=== PATIENT | male | born 1970 | race Caucasian/White ===

== ENCOUNTER 2016-07-11 16:59 | Emergency (ER) | payer OTHER ==
[~2016-07-11] VITALS: Ht 188 cm; Wt 102.3 kg
[2016-07-11 17:03] VITALS: BP 136/97; PULSE 105; RESP 16; O2SAT 98
--- NOTE | 2016-07-11 18:22 | ED.REPORT ---
HPI-Head Prob / Injury Date of Service July 11, 2016 ED Provider: Dr. Bola Cole The patient is an otherwise healthy 45 year old male who presents to the ED due to concern for a possible concussion received yesterday at 1100. The pt was walking, slipped, fell and hit the right frontal lobe on a log. He did not lose consciousness. The pt describes pressure and throbbing, constant, head pain as well as mild neck pain. He has a small abrasion and laceration to the right frontal region. He confirms dizziness when he stands or moves quickly, and even a slight cough exacerbates his headache. He denies bleeding from his ears, nausea, confusion, memory loss, extremity pain, numbness,or weakness. Nursing Notes Stated Complaint: HEAD INJURY Chief Complaint: Head, Face, Neck Trauma Nursing Notes Reviewed: Yes ([employer] not reconciled) Allergies: Coded Allergies: Sulfa (Sulfonamide Antibiotics) (Verified Allergy, Unknown, 08/28/14) Scheduled PRN Hydrocodone-Acetaminophen 5-325 mg (Hydrocodone-Acetaminophen 5-325 mg) 1 Each Tablet 1-2 TABLET PO Q6H PRN PRN For Pain General Time Seen by Provider: 18:40 Chief Complaint Other (possible concussion) Hx Obtained From: Patient Arrived By: Walk-in Onset Occurred: Yesterday (yesterday morning) Symptom Duration: Since onset Progression Since Onset: Constant Caused by: Fall from (ground) Location: : Temporal region R Quality: Painful Severity: Current: Mild Immunizations: Tetanus up to date Recent Healthcare: No recent doctor visit, No recent hospitalization Similar Sx Previous: No Past Medical History Past Medical History arthritis to right hand Past Surgical History rotator cuff surgery Smoking History Unknown if Ever Smoker Social History Other Social History: Local resident Ambulatory Status Independent Review of Systems Ears / Nose / Throat: Denies: Nose bleeding GI: Denies: Nausea Musculoskeletal: Reports: Neck pain, Denies: Extremity pain Skin: Reports Bruising, Reports Swelling (hematoma and scalp laceration) Neurologic: Reports: Dizziness, Headache, Lightheaded, Denies: Change LOC, Confusion, Numbness, Weakness Complete sys rev & neg: except as marked. Physical Exam Initial Vital Signs Vital Signs (First) Date Time Temp Pulse Resp B/P Pulse Ox O2 Delivery O2 Flow Rate FiO2 07/11/16 17:03 36.7 105 16 136/97 98 Room Air Initial VS: Reviewed, Vital signs abnormal (HR 105) Respiratory: Breath sounds normal, Clear to auscultation, No respiratory distress Cardiovascular: Regular rate & rhythm, Heart sounds normal, Intact distal pulses Abdomen / GI: Soft, Non-tender, No guarding, No rebound, No distention Extremities: Vascular intact, Neuro intact, No swelling, No tenderness Skin: Warm, Dry Psychiatric: Mood/affect normal General/Constitutional: Awake, Alert, Cooperative, Not toxic appearing Head / Eyes: Normocephalic, PERRL Trauma - General: Positive: Laceration hematoma and scalp laceration w/ dried blood ENT: Atraumatic, Airway patent, Mucous membranes moist, Pharynx NL Neck: No midline vertebral tend right sided lateral neck pain Neurologic: Oriented X3, Speech NL, No motor deficits Interpretation & Diagnostics CT Head Interpretation IMPRESSION: No acute intracranial abnormalities. Dictated by: Shane Vasquez M.D. on 07/11/2016 at 18:52 Approved by: Shane Vasquez M.D. on 07/11/2016 at 18:52 Study: Head CT no contrast Interpretation / Wet Read by: Interpret - Radiologist Procedures Laceration Management Laceration Management: .5 m scalp abrasion to left frontal lobe Time: 19:08 Procedure Performed by: ED physician Consent / Setup / Site Prep: Informed consent provided, Consent from patient , Hand hygiene observed, Stand sterile technique Local Anesthesia: Lidocaine w epi 1% Foreign Body Explore / Removal: Explored for foreign body Repair Skin: Dermabond Post-Procedure / Complications: Antibiotic oint applied, Dressing applied, No complications, Condition improved, Tolerated procedure well, Patient stable Re-Eval/Medical Decision Med Decision/Clinical Course This is a 45-year-old male presents concerned with a head injury after tripping falling and hitting his head against a log hard yesterday. Since then he has had some increasing headache, and some dizziness. He has had no other complaints, no loss of consciousness, no focal deficits, it is suffered a laceration on the side of his head. He is up-to-date on tetanus. He is not on anticoagulants. Found patient awake, alert, and appropriate without signs of altered mentation or focal deficit. He has a deep abrasion subtle laceration that did edge approximation without evidence that he needs suture or staple repair with a small hematoma on the right parietal side of the head. There is dried blood as this injury occurred greater than 24 hours ago, and the wound was anesthetized, cleaned and inspected-but again I am not finding evidence of a benefit from repair. Respiratory exam is normal. There is no evidence of cervical spine injury. Nurse's obtain CT imaging of the brain which was negative. Patient is reassured. Reactive precautions reviewed. Patient's discharged in stable condition. Source of Hx: Old records Re-Evaluation/Progress : Time of Eval: 19:07 Patient Status: Condition improved, Pain improved Re-Evaluation/Progress Note: Laceration management performed. Pt tolerated procedure well. X-ray does not show any fracture. Plan for discharge. F/U and RTER warnings given. Pt understands and agrees with plan. All questions addressed. Differential Diagnosis: Positive: Abrasion, Blunt head trauma, Scalp laceration , Negative: Basilar skull fracture, Cervical spine injury, Closed head injury, Epidural hematoma, Epistaxis, Facial bone fracture, Gun shot wound head, Intracranial hemorrhage, Penetrating head injury, Seizure, Skull fracture, Subdural hematoma, Syncope Counseled Regarding: Diagnosis, Lab results, Need for follow-up, When/why to return to ED Discharge & Departure Primary Impression: Blunt head trauma Encounter type: initial encounter Qualified Code: S09.8XXA - Other specified injuries of head, initial encounter Additional Impression: Scalp laceration Encounter type: initial encounter Qualified Code: S01.01XA - Laceration without foreign body of scalp, initial encounter Disposition: Home All VS Reviewed: Yes Condition: Stable Patient Instructions: Concussion (ED) Additional Instructions: 1. The CT scan was normal. 2. It is OK to sleep. 3. Symptoms should improve with time. 4. Activities as tolerated. 5. You do have a scalp laceration, but it does not require stapling or sutures and will heal with time. It was cleaned today. It is OK to shower. Return if any concern for infection: redness, swelling, fever, worsening pain, etc... 6. Take ibuprofen 400-800mg three times a day for soreness/pain if needed. 7. If needed for more severe pain take (vicodin) hydrocodone/APAP 5/325 1-2 tabs up to every 6 hours. Note: This medication contains narcotic and causes drowsiness. Use sparingly. Referrals: [facility] (PCP) [facility] Scribe Attestation Portion of this note were transcribed by Yuki Vega. I, Dr.Matthew Cole, personally performed the history, physical exam, and medical decision-making: I reviewed and confirmed the accuracy for the information in the transcribed note. Signed by: leona Laura, 07/11/16 2000 copies to: N[facility]; [facility] Bola Cole MD July 11, 2016 18:22 Yuki Vega July 11, 2016 18:40
--- NOTE | 2016-07-11 18:54 | DRSVH ---
PROCEDURE: CT BRAIN WITHOUT CONTRAST ([id number]) INDICATIONS: 45 year-old male with head injury and increasing headaches. TECHNIQUE: Noncontrast 4.5 mm thick angled axial sections acquired from the foramen magnum to the vertex, with c oronal reformats. COMPARISON: None. FINDINGS: Image quality: Excellent. CSF spaces: Basal cisterns are patent. No extra-axial fluid collections. Ventricles are normal in size and shape. Brain: No midline shift. No intracranial masses or hemorrhage. Santacruz-white matter interface is norm al. Skull and face: Calvarium and visualized facial bones are intact, without suspicious lesions. Sinuses: Visualized sinuses and mastoids are clear. IMPRESSION: No acute intracranial abnormalities. Dictated by: Shane Vasquez M.D. on 07/11/2016 at 18:52 Approved by: Shane Vasquez M.D. on 07/11/2016 at 18:52
[2016-07-11] MEDS ORDERED: HYDR-4003 PO (19:16)
== END 2016-07-11 19:23 | disposition home or self-care (01) ==
LOC: SED 16:59
DX: S01.01XA Laceration without foreign body of scalp, initial encounter (principal); S09.8XXA Other specified injuries of head, initial encounter; W01.198A Fall on same level from slipping, tripping and stumbling with subsequent striking against other object, initial encounter; Y93.01 Activity, walking, marching and hiking; Y92.9 Unspecified place or not applicable; Y99.8 Other external cause status; Z88.2 Allergy status to sulfonamides

== ENCOUNTER 2016-08-18 12:49 | Emergency (ER) | payer OTHER ==
[~2016-08-18] VITALS: Ht 188 cm; Wt 104.5 kg
[~2016-08-18 12:49] MED LIST: HYDR-4003 PO
[2016-08-18 12:50] VITALS: BP 147/97; PULSE 98; RESP 16; O2SAT 99
--- NOTE | 2016-08-18 13:13 | ED.REPORT ---
HPI-Rash / Abscess Date of Service Aug 18, 2016 ED Provider: Eric Jerome MD Pt is a healthy 45 year old male who presents to the ED with concerns for a developing abscess under his right armpit. He reports that he has had this in the past. He reports no discharge or fevers. He has no other complaints. Nursing Notes Stated Complaint: ABSCESS UNDER RIGHT ARMPIT Chief Complaint: Skin Rash/Abscess Nursing Notes Reviewed: Yes Allergies: Coded Allergies: Sulfa (Sulfonamide Antibiotics) (Verified Allergy, Unknown, 08/18/16) Scheduled Clindamycin (Clindamycin) 300 Mg Capsule 300 MG PO QID Scheduled PRN Hydrocodone-Acetaminophen 5-325 mg (Hydrocodone-Acetaminophen 5-325 mg) 1 Each Tablet 1 TABLET PO Q4H PRN PRN For Pain Ibuprofen (Ibuprofen) 800 Mg Tablet 800 MG PO TID PRN PRN For Pain General Time Seen by MD: 12:55 Chief Complaint Abscess Hx Obtained From: Patient Arrived By: Walk-in Onset Occurred: 2 days ago Symptom Duration: Since onset Location: : Axilla Quality: Painful Severity: Current: Mild Severity: Maximum: Moderate Similar Sx Previous: Yes Past Medical History Past Medical History arthritis to right hand Past Surgical History rotator cuff surgery Smoking History Unknown if Ever Smoker Social History Other Social History: Local resident Ambulatory Status Independent Review of Systems Constitutional: Denies: Chills, Fever, Malaise, Weakness - generalized Respiratory: Denies: Non-productive cough, Shortness of breath, Wheezing Cardiovascular: Denies: Chest pain, Syncope GI: Denies: Abdominal pain, Constipation, Diarrhea, Nausea, Vomiting Musculoskeletal: Denies: Back pain, Extremity pain, Neck pain Skin: Reports Rash, Denies Swelling Complete sys rev & neg: except as marked. Physical Exam Initial Vital Signs Vital Signs (First) Date Time Temp Pulse Resp B/P Pulse Ox O2 Delivery O2 Flow Rate FiO2 08/18/16 12:50 36 98 16 147/97 99 Room Air Initial VS: Reviewed Head / Eyes: Atraumatic, Normocephalic, PERRL ENT: Mucous membranes moist, Conjunctiva normal, No scleral icterus Neck: Supple, Non-tender, Full range of motion Respiratory: Breath sounds normal, Clear to auscultation, No respiratory distress Cardiovascular: Regular rate & rhythm, Heart sounds normal, Intact distal pulses Abdomen / GI: Soft, Non-tender, No guarding, No rebound, No distention Neurologic: Alert General/Constitutional: Awake, Alert, No acute distress, Well appearing, Well developed Skin: Warm, Dry Abscess Notes: 1x1cm area of erythematous mass on right axilla No fluctuance or discharge Re-Eval/Medical Decision Med Decision/Clinical Course 45 -year-old male presenting complaining of abscess on right armpit. On exam with small 1 x 1 cm area erythematous mass no fluctuance no drainage. Discussed with patient the possibility of performing incision and drainage and he prefers antibiotic management at this time. Will place on clindamycin and given sulfa allergy. Return precautions given if any new or worsening pain, swelling, discharge, fevers, right upper extremity neurological deficits, any other neurologic symptoms. Source of Hx: Old records Re-Evaluation/Progress : Time of Eval: 13:33 Re-Evaluation/Progress Note: Pt is rechecked and informed of his diagnosis and the plan to discharge him at this time. He understands and agrees, all questions are addressed. Counseled Regarding: Diagnosis, Need for follow-up, When/why to return to ED Discharge & Departure Impression: Primary Impression: Abscess Disposition: Home Discharge Condition All VS Reviewed: Yes Condition: Stable Patient Instructions: Abscess (ED) Additional Instructions: You elected for no incision and drainage of your abscess today, with a trial with an antibiotic. Take the antibiotic as prescribed. Take ibuprofen to alleviate your pain. Use the narcotic pain medication sparingly. This medication may cause drowsiness, do not drive or drink alcohol while on this medication. Follow up with your primary care provider later this week for a re- check. Return to the emergency department with any fevers, numbness, weakness or tingling in your upper extremities or any other worsening or concerning symptoms. Referrals: [facility] Scribneeraj Attestation Portions of this note were transcribed by Dunia Stock. I, Dr. Jerome personally performed the history, physical exam and medical decision-making; I reviewed and confirmed the accuracy of the information in the transcribed note. Signed by: Alta Mcfarland, 08/18/2016 13:30 copies to: [facility] Eric Jerome MD Aug 18, 2016 13:13 NAZANIN STOCK Aug 18, 2016 13:21
[2016-08-18] MEDS ORDERED: IBUP800T28 PO (13:15)
[2016-08-18] MEDS ORDERED: HYDR-4003 PO (13:15)
[2016-08-18] MEDS ORDERED: CLIN-78 PO (13:15)
[2016-08-18 13:28] VITALS: BP 129/92; PULSE 90; RESP 16; O2SAT 93
== END 2016-08-18 13:31 | disposition home or self-care (01) ==
LOC: SED 12:49
DX: L02.411 Cutaneous abscess of right axilla (principal); Z88.2 Allergy status to sulfonamides

== ENCOUNTER 2016-10-26 23:11 | Emergency (ER) | payer OTHER ==
[~2016-10-26] VITALS: Ht 188 cm; Wt 102.3 kg
[~2016-10-26 23:11] MED LIST changes: +CLIN-78 PO; +IBUP800T28 PO
[2016-10-26 23:17] VITALS: BP 153/92; PULSE 78; RESP 16; O2SAT 97
--- NOTE | 2016-10-27 00:07 | ED.REPORT ---
HPI-Rash / Abscess Date of Service Oct 27, 2016 ED Provider: Iraj Zurita Pt is a 45 y/o male who presents to the ED c/o cellulitis in his R axilla onset two days ago. He states he was previously treated with antibiotics for similar symptoms one month ago. Additional symptoms include swelling in his R axilla. He denies fever, chills, numbness/tingling, focal weakness, SOB, chest pain, nausea, vomiting, or diarrhea. Nursing Notes Stated Complaint: INFECTION, RT ARMPIT Chief Complaint: Skin Rash/Abscess Nursing Notes Reviewed: Yes Allergies: Coded Allergies: Sulfa (Sulfonamide Antibiotics) (Verified Allergy, Unknown, 10/26/16) Scheduled Clindamycin (Clindamycin) 300 Mg Capsule 300 MG PO QID Scheduled PRN Hydrocodone-Acetaminophen 5-325 mg (Hydrocodone-Acetaminophen 5-325 mg) 1 Each Tablet 1 TABLET PO Q4H PRN PRN For Pain Ibuprofen (Ibuprofen) 800 Mg Tablet 800 MG PO TID PRN PRN For Pain General Time Seen by MD: 00:07 Chief Complaint Other (Cellulitis on R axilla) Hx Obtained From: Patient Arrived By: Walk-in Onset Occurred: 2 days ago Location: : Axilla Severity: Current: Mild Severity: Maximum: Moderate Recent Healthcare: No recent doctor visit, Recent hospitalization Similar Sx Previous: Yes Past Medical History Past Medical History arthritis to right hand Past Surgical History rotator cuff surgery Smoking History Unknown if Ever Smoker Social History Alcohol Use: "Social" Drug Use: THC Other Social History: Local resident Ambulatory Status Independent Review of Systems cellulitis in R axilla Constitutional: Denies: Chills, Fever Respiratory: Denies: Shortness of breath Cardiovascular: Denies: Chest pain GI: Denies: Diarrhea, Nausea, Vomiting Musculoskeletal: Reports: Extremity swelling (in R axilla) Complete sys rev & neg: except as marked. Neurologic: Denies: Focal weakness, Numbness Physical Exam Initial Vital Signs Vital Signs (First) Date Time Temp Pulse Resp B/P Pulse Ox O2 Delivery O2 Flow Rate FiO2 10/26/16 23:17 36.8 78 16 153/92 97 Initial VS: Reviewed Head / Eyes: Atraumatic, Normocephalic Neck: Supple, Full range of motion Extremities: Vascular intact, Neuro intact, No swelling, No tenderness Neurologic: Alert, Oriented, Nonfocal Psychiatric: Mood/affect normal, Behavior normal, Normal thought content General/Constitutional: Awake, Alert, No acute distress Skin: Warm, Dry Cellulitis in R axilla Respiratory / Chest: Atraumatic, Breath sounds NL, Breath sounds = bilat, No respiratory distress Cardiovascular: Heart rate NL, Regular rhythm, Heart sounds NL Re-Eval/Medical Decision Med Decision/Clinical Course No drainable abscess collection. He has been treated successfully with clindamycin. We will placement short course of clindamycin and have outpatient follow-up. Routine opiate warnings given. He had at least moderate to severe pain. Take home pack of [place] was provided. Source of Hx: Old records Re-Evaluation/Progress : Time of Eval: 00:07 Re-Evaluation/Progress Note: Discussed plan for discharge. Patient understands and agrees with plan. F/U instructions and RTER warnings given. All questions addressed at this time. Counseled Regarding: Diagnosis, Lab results, Need for follow-up, When/why to return to ED Discharge & Departure Impression: Primary Impression: Cellulitis Site of cellulitis: other site Qualified Code: L03.818 - Cellulitis of other sites Disposition: Home Discharge Condition All VS Reviewed: Yes Condition: Stable Additional Instructions: Take the Clindamycin four times a day for five days. Stop taking Clindamycin if you experience any diarrhea. Take 1-2 [place] every 6 hours for pain. [address] not drive , drink alcohol, or take acetaminophen while taking [place]. Follow up with your primary care doctor in 48-72 hours for a recheck. If you develop any fluctuance , please return to your primary care doctor or emergency room for it to be drained. Please return to the emergency department if you experience any progressively worsening symptoms, or any other concerns. Referrals: [facility] (PCP) [facility] Scribe Attestation Portions of this note were transcribed by Gia Dela Cruz. I, Dr. Zurita, personally performed the history, physical exam and medical decision-making; I reviewed and confirmed the accuracy of the information in the transcribed note. copies to: [facility] Iraj Zurita DO Oct 27, 2016 00:07 Gia Dela Cruz Oct 27, 2016 00:19
[2016-10-27] MEDS ORDERED: _HYDROcodone/APAP 5-325 mg Tablet PO PRN (00:20)
[2016-10-27 00:42] VITALS: BP 153/92; PULSE 78; RESP 16; O2SAT 97
== END 2016-10-27 00:41 | disposition home or self-care (01) ==
LOC: SED 23:11
DX: L03.111 Cellulitis of right axilla (principal); L03.818 Cellulitis of other sites; Z88.2 Allergy status to sulfonamides

== ENCOUNTER 2016-11-03 19:34 | Emergency (ER) | payer OTHER ==
[~2016-11-03] VITALS: Ht 188 cm; Wt 102.3 kg
[2016-11-03 19:44] VITALS: BP 165/82; PULSE 86; RESP 16; O2SAT 99
--- NOTE | 2016-11-03 19:53 | ED.REPORT ---
HPI-Rash / Abscess Date of Service Nov 03, 2016 ED Provider: History of Present Illness: 45-year-old male here for abscess in his left axilla. He has had a similar lesion in his right axilla in August. He took clindamycin and went away. This lesion he presents with today or to 3 days ago. It is painful. No drainage. No fever nausea or vomiting. He is otherwise healthy. Nursing Notes Stated Complaint: LEFT SPRAINED KNEE/LEFT ARMPIT BOIL Chief Complaint: Skin Rash/Abscess Nursing Notes Reviewed: Yes Allergies: Coded Allergies: Sulfa (Sulfonamide Antibiotics) (Verified Allergy, Unknown, 11/03/16) Scheduled Clindamycin (Clindamycin) 300 Mg Capsule 300 MG PO QID Clindamycin (Clindamycin) 300 Mg Capsule 300 MG PO QID Scheduled PRN Hydrocodone-Acetaminophen 5-325 mg (Hydrocodone-Acetaminophen 5-325 mg) 1 Each Tablet 1 TABLET PO Q4H PRN PRN For Pain Hydrocodone-Acetaminophen 5-325 mg (Hydrocodone-Acetaminophen 5-325 mg) 1 Each Tablet 1 TABLET PO Q4H PRN PRN For Pain Ibuprofen (Ibuprofen) 800 Mg Tablet 800 MG PO TID PRN PRN For Pain Ibuprofen (Ibuprofen) 600 Mg Tablet 600 MG PO QID PRN PRN For Pain General Time Seen by MD: 19:53 Chief Complaint Abscess Hx Obtained From: Patient Arrived By: Walk-in Onset Occurred: 3 days ago Symptom Duration: Constant Location: : Axilla Quality: Same as prior Severity: Current: Moderate Severity: Maximum: Moderate Pertinent Negative: Pt denies other symptoms Recent Healthcare: No recent doctor visit Similar Sx Previous: Yes Past Medical History Past Medical History arthritis to right hand abscess axilla Past Surgical History rotator cuff surgery Smoking History Unknown if Ever Smoker Social History Alcohol Use: "Social" Drug Use: THC Other Social History: Local resident Ambulatory Status Independent Review of Systems Basic Review of Systems Neurologic: NL mental status, No weakness, No numbness Psychiatric: Normal thought content Constitutional: Denies: Chills, Fatigue, Fever GI: Denies: Abdominal pain, Nausea, Vomiting Musculoskeletal: Reports: Extremity pain Complete sys rev & neg: except as marked. Physical Exam Initial Vital Signs Vital Signs (First) Date Time Temp Pulse Resp B/P Pulse Ox O2 Delivery O2 Flow Rate FiO2 11/03/16 19:44 37.0 86 16 165/82 99 Room Air Initial VS: Reviewed, Vital signs normal General/Constitutional: Awake, Alert, Well appearing Rash / Lesion Notes: dime size light erythematous abscess in left axilla. Just adjacent to this lesion is a quarter size erythematous abscess, with less defined borders. Both have a small palpable area of induration. No visible head. Respiratory / Chest: Breath sounds NL, Breath sounds = bilat, No respiratory distress, No rales, No rhonchi, No wheezing Cardiovascular: Heart rate NL, Regular rhythm, Heart sounds NL, Peripheral circulation NL Discharge & Departure Impression: Primary Impression: Abscess Disposition: Home Discharge Condition All VS Reviewed: Yes Condition: Stable Patient Instructions: Abscess (GEN) Additional Instructions: Apply warm packs to axilla 3 times a day. you may do this by getting a kitchen towel and wetting it, and putting it in the microwave for 20 seconds. Then apply to your armpit. Take antibiotic as prescribed. Follow-up if worsening. Otherwise follow-up with your PCP for recheck in a few days. Referrals: [facility] (PCP) [facility] Provider for [facility]: Bola Cole MD, Linnea K ARNP Nov 03, 2016 19:53
[2016-11-03] MEDS ORDERED: CLIN-78 PO (20:21)
[2016-11-03] MEDS ORDERED: IBUP-1827 PO (20:28)
[2016-11-03] MEDS ORDERED: HYDR-4003 PO (20:28)
== END 2016-11-03 20:25 | disposition home or self-care (01) ==
LOC: SED 19:34
DX: L02.412 Cutaneous abscess of left axilla (principal); Z88.2 Allergy status to sulfonamides